=== PATIENT | male | born 1950 | race Caucasian/White ===

== ENCOUNTER 2023-07-06 05:57 | Inpatient (IN) | payer MEDICARE, OTHER ==
[~2023-07-06] VITALS: Ht 182.9 cm; Wt 81.6 kg
[2023-07-06] MEDS ORDERED: MAG HYDROX/AL HYDROX/SIMETH 30 ML UDC ONE (06:29)
[2023-07-06] MEDS ORDERED: FAMOTIDINE/PF INJ 20 MG/2 ML VIAL IV ONE (06:29)
[2023-07-06] MEDS ORDERED: MORPHINE SULFATE INJ 4 MG/ML DISP.SYRIN ONE (06:29)
[2023-07-06] MEDS ORDERED: ONDANSETRON HCL/PF 4 MG/2 ML VIAL ONE (06:29)
[2023-07-06] MEDS: IV NS 0.9% 1,000 ML BAG IV ONE ×2 (06:30→09:00)
[2023-07-06] MEDS: ONDANSETRON HCL/PF 4 MG/2 ML VIAL IVP ONE (06:30)
[2023-07-06] MEDS: FAMOTIDINE/PF INJ 20 MG/2 ML VIAL IV ONE (06:35)
[2023-07-06] MEDS: MORPHINE SULFATE INJ 2 MG/ML DISP.SYRIN IV ONE (06:35)
[2023-07-06] MEDS: MAG HYDROX/AL HYDROX/SIMETH 30 ML UDC PO ONE (06:42)
[2023-07-06 06:59] LABS: EOSINOPHILS # (AUTO) 0.2 K/uL (0.0-0.7); HEMATOCRIT 37 % (39-51); HEMOGLOBIN 12.5 g/dL (13.5-17.5); LYMPHOCYTES # (AUTO) 0.7 K/uL (0.8-4.8); LYMPHOCYTES % (AUTO) 8.7 % (20.0-44.0); MEAN CORPUSCULAR HEMOGLOBIN 31 PG (26.0-33.0); MEAN CORPUSCULAR HGB CONC 34 g/dl (31.0-36.0); MEAN CORPUSCULAR VOLUME 92 fL (80-96); MONOCYTES # (AUTO) 0.2 K/uL (0.1-1.30); MONOCYTES % (AUTO) 2.1 % (2.0-12.0); NEUTROPHILS # (AUTO) 7.3 K/uL (1.8-8.9); NEUTROPHILS % (AUTO) 87.2 % (43.0-81.0); PLATELET COUNT (AUTO) 148 K/uL (150-450); RED BLOOD CELL COUNT(AUTO) 4.03 MIL/uL (4.5-6.0); RED CELL DISTRIBUTION WIDTH 12.8 % (11.5-15.0); WHITE BLOOD COUNT (AUTO) 8.4 K/uL (4.3-11.0)
[2023-07-06] MEDS ORDERED: IOHEXOL-300 100 ML VIAL IV ONE (07:09)
[2023-07-06] MEDS ORDERED: CT SWABBABLE VALVE TRANS SET 1 EA INFUS.SET MC ONE (07:10)
[2023-07-06] MEDS ORDERED: IV NS 0.9% 250 ML IV ONE (07:10)
[2023-07-06 07:21] LABS: CARBON DIOXIDE 29 mmol/L (21-32); CHLORIDE 100 mmol/L (98-107); CREATININE 1.1 mg/dL (0.6-1.3); GLUCOSE 147 mg/dL (74-106); POTASSIUM 4.4 mmol/L (3.5-5.1); SODIUM SERUM 135 mmol/L (136-145); UREA NITROGEN, BLOOD 21 mg/dL (7-18)
[2023-07-06 07:22] LABS: INR 1.07 (0.91-1.10); PARTIAL THROMBOPLASTIN TIME 27.9 SEC (24.3-34.3); PROTHROMBIN TIME 11.3 SECS (9.2-11.1)
[2023-07-06 07:26] LABS: ALANINE AMINOTRANSFERASE 27 U/L (12-78); ALBUMIN 3.5 g/dL (3.4-5.0); ALKALINE PHOSPHATASE 81 U/L (46-116); ASPARTATE AMINOTRANSFERASE 17 U/L (15-37); BILIRUBIN,DIRECT 0.3 mg/dL (0.0-0.2); BILIRUBIN,TOTAL 0.9 mg/dL (0.2-1.0); LIPASE 65 U/L (16-77); TOTAL PROTEIN, SERUM 6.9 g/dL (6.4-8.2)
[2023-07-06 07:52] LABS: APPEARANCE,URINE CLEAR (CLEAR); BILIRUBIN,URINE NEGATIVE (NEGATIVE); BLOOD, URINE NEGATIVE Ery/uL (NEGATIVE); COLOR,URINE YELLOW (YELLOW); KETONES,URINE NEGATIVE (NEGATIVE); LEUKOCYTE ESTERASE ,URINE NEGATIVE (NEGATIVE); NITRITE, URINE NEGATIVE (NEGATIVE); PH,URINE 6.5 (5.0-8.0); PROTEIN,URINE NEGATIVE (NEGATIVE); UGLUCOSE NEGATIVE (NEGATIVE)
[2023-07-06] MEDS ORDERED: HYDROMORPHONE 1 MG/1 ML DISP.SYRIN ONE (08:03)
[2023-07-06] MEDS: HYDROMORPHONE 1 MG/1 ML DISP.SYRIN IV ONE (08:06)
[2023-07-06 08:24] LABS: LACTIC ACID 2.6 mmol/L (0.4-2.0)
[2023-07-06] MEDS: CEFTRIAXONE 1GM BAG (ER ONLY) 1 GM/50 ML PIGGYBACK IV ONE (09:00)
[2023-07-06] MEDS: FLAGYL/NS RTU 500 MG/100 ML PIGGYBACK IV ONE (09:00)
[2023-07-06] MEDS ORDERED: ONDANSETRON HCL/PF 4 MG/2 ML VIAL IVP PRN (09:30)
[2023-07-06] MEDS: PANTOPRAZOLE 40 MG VIAL IV SCH (09:30)
[2023-07-06] MEDS ORDERED: METRONIDAZOLE 500MG/ NS 100ML 100 ML IV ONE (10:29)
[2023-07-06] MEDS ORDERED: PANTOPRAZOLE 40 MG VIAL ONE (10:29)
[2023-07-06] MEDS ORDERED: CEFTRIAXONE 1GM BAG (ER ONLY) 50 ML IV ONE (10:42)
[2023-07-06] MEDS ORDERED: IMIP50TA7 PO (11:08)
[2023-07-06] MEDS ORDERED: IRBE300T19 PO (11:08)
[2023-07-06] MEDS ORDERED: ATOR80TA PO (11:08)
[2023-07-06] MEDS ORDERED: HYDR-4077 PO (11:08)
[2023-07-06] MEDS ORDERED: METF-881 PO (11:08)
[2023-07-06] MEDS ORDERED: CARV25TA2 PO (11:08)
[2023-07-06] MEDS ORDERED: EVOL140P3 SQ (11:08)
[2023-07-06] MEDS ORDERED: ASPI-1420 PO (11:08)
[2023-07-06] MEDS ORDERED: EZET10TA32 PO (11:08)
[2023-07-06 16:00] VITALS: BP 123/67; TEMP 98.1; O2SAT 99
[2023-07-06] MEDS: IV NS 0.9% 1,000 ML IV PRN (16:02)
[2023-07-06] MEDS: BLOOD SUGAR DIAGNOSTIC 1 EACH STRIP IN SCH (17:12)
[2023-07-06] MEDS ORDERED: DEXTROSE 50%-WATER 50 ML DISP.SYRIN IV PRN (17:30)
[2023-07-06] MEDS: MORPHINE SULFATE INJ 2 MG/ML DISP.SYRIN IV PRN (18:43)
[2023-07-06 20:00] VITALS: BP 128/78; TEMP 100.8; O2SAT 94
[2023-07-06] MEDS: INSULIN REGULAR, HUMAN 100 UNIT/ML 3 ML VIAL SQ PRN (22:28)
[2023-07-06] MEDS: ACETAMINOPHEN 325 MG TABLET PO PRN (22:33)
[2023-07-07] VITALS: BP 135/66; TEMP 97.9; O2SAT 94
[2023-07-07 04:00] VITALS: BP 157/77; TEMP 98.4; O2SAT 94
[2023-07-07 07:01] LABS: CALCIUM, SERUM 7.6 mg/dL (8.5-10.1); MAGNESIUM 2.1 mg/dL (1.8-2.4)
[2023-07-07 07:09] LABS: BASOPHILS % (AUTO) 0.4 % (0.0-2.0); EOSINOPHILS # (AUTO) 0.1 K/uL (0.0-0.7); EOSINOPHILS % (AUTO) 1.7 % (0.0-6.0); HEMATOCRIT 35 % (39-51); HEMOGLOBIN 11.8 g/dL (13.5-17.5); LYMPHOCYTES # (AUTO) 1.2 K/uL (0.8-4.8); LYMPHOCYTES % (AUTO) 23.7 % (20.0-44.0); MEAN CORPUSCULAR HEMOGLOBIN 31 PG (26.0-33.0); MEAN CORPUSCULAR HGB CONC 33 g/dl (31.0-36.0); MEAN CORPUSCULAR VOLUME 92 fL (80-96); MONOCYTES # (AUTO) 0.5 K/uL (0.1-1.30); MONOCYTES % (AUTO) 9.7 % (2.0-12.0); NEUTROPHILS # (AUTO) 3.1 K/uL (1.8-8.9); NEUTROPHILS % (AUTO) 64.5 % (43.0-81.0); PLATELET COUNT (AUTO) 140 K/uL (150-450); RED BLOOD CELL COUNT(AUTO) 3.82 MIL/uL (4.5-6.0); RED CELL DISTRIBUTION WIDTH 12.8 % (11.5-15.0); WHITE BLOOD COUNT (AUTO) 4.9 K/uL (4.3-11.0)
[2023-07-07] MEDS ORDERED: ESOM20CA PO (11:04)
== END 2023-07-07 12:08 | disposition home or self-care (01) | DRG 384 ==
LOC: ER 05:59 → MEDSG1 14:46 → TELE1 14:53 → MEDSG1 07-07 08:33
PROVIDERS: ADMIT Nurse Practitioner Acute Care; ATTEND Nurse Practitioner Acute Care
DX: K27.9 Peptic ulcer, site unspecified, unspecified as acute or chronic, without hemorrhage or perforation (principal); E87.20 Acidosis, unspecified; E87.1 Hypo-osmolality and hyponatremia; E86.0 Dehydration; D64.9 Anemia, unspecified; K29.70 Gastritis, unspecified, without bleeding; Z85.46 Personal history of malignant neoplasm of prostate; Z90.79 Acquired absence of other genital organ(s); Z98.61 Coronary angioplasty status; I25.10 Atherosclerotic heart disease of native coronary artery without angina pectoris; I10 Essential (primary) hypertension; K31.89 Other diseases of stomach and duodenum; R79.89 Other specified abnormal findings of blood chemistry; E11.9 Type 2 diabetes mellitus without complications; Z95.818 Presence of other cardiac implants and grafts
CPT/HCPCS: 36415; 80048-TC; 80061-TC; 80076-TC; 82962-TC; 83605-TC; 83690-TC; 83735-TC; 84100-TC; 84484-TC; 85025-TC; 85730-TC; 87040-TC; A4223; C9113; G0378; J0696; J1170; J1815; J2270; J2405; J3490; J7030; J7050; Q9967